=== PATIENT | female | born 1995 | race Two or more races ===

== ENCOUNTER 2017-08-16 10:52 | Emergency (ER) | payer MEDICAID, OTHER ==
[~2017-08-16] VITALS: Ht 165.1 cm; Wt 68.5 kg
[~2017-08-16 10:52] MED LIST: ONDA4TAB6 PO
[2017-08-16 10:56] VITALS: BP 141/96
== END 2017-08-16 12:19 | disposition home or self-care (01) ==
LOC: ER 10:53
DX: M79.605 Pain in left leg (principal)
CPT/HCPCS: 73564; 73610; 73630; 99284